=== PATIENT | female | born 2000 | race Two or more races ===

== ENCOUNTER 2022-07-03 01:59 | Inpatient (IN) | payer OTHER ==
[~2022-07-03] VITALS: Ht 157.5 cm; Wt 68.0 kg
[2022-07-03] MEDS ORDERED: PRENATAL TABLE1 EAC1 PO (02:08)
== END 2022-07-05 12:10 | disposition home or self-care (01) | DRG 807 ==
LOC: LDR 01:59 → OB/GYN 01:59
PROVIDERS: ADMIT Obstetrics & Gynecology; ATTEND Obstetrics & Gynecology
PROC: 10E0XZZ Delivery of Products of Conception, External Approach (ICD-10-PCS; principal; 2022-07-03)
PROC: 0KQM0ZZ Repair Perineum Muscle, Open Approach (ICD-10-PCS; 2022-07-03)
PROC: 4A1HXCZ Monitoring of Products of Conception, Cardiac Rate, External Approach (ICD-10-PCS; 2022-07-03)
DX: O70.1 Second degree perineal laceration during delivery (principal); Z37.0 Single live birth; O42.02 Full-term premature rupture of membranes, onset of labor within 24 hours of rupture; Z3A.39 39 weeks gestation of pregnancy; Z20.822 Contact with and (suspected) exposure to COVID-19